=== PATIENT | female | born 1950 | race Caucasian/White ===

== ENCOUNTER 2018-09-21 09:25 | Emergency (ER) | payer MEDICARE ==
[~2018-09-21] VITALS: Ht 152.4 cm; Wt 49.5 kg
[2018-09-21 09:42] VITALS: BP 148/75
[2018-09-21] MEDS ORDERED: LIDOcaine 5% patch TP ONE (10:30)
[2018-09-21] MEDS ORDERED: HYDROcodone/acetaminophen 5mg/325mg tablet PO ONE (10:30)
[2018-09-21] MEDS ORDERED: acetaminophen 325mg tablet PO ONE (10:30)
[2018-09-21] MEDS ORDERED: ketorolac trometh inj. 60 MG/2 ML VIAL IM ONE (10:30)
[2018-09-21] MEDS ORDERED: orphenadrine citrate 60mg/2ml inj. IM ONE (10:30)
[2018-09-21] MEDS ORDERED: CYCL-1 PO (10:31)
[2018-09-21] MEDS ORDERED: LIDO700A32 TOP (10:31)
[2018-09-21] MEDS ORDERED: HYDR-3965 PO (10:31)
== END 2018-09-21 10:57 | disposition home or self-care (01) ==
LOC: EDBD 09:26 → ER 09:26
DX: M54.5 Low back pain (principal); G89.29 Other chronic pain; M79.604 Pain in right leg; Z79.899 Other long term (current) drug therapy
CPT/HCPCS: 96372; 99284; J1885; J2360

== ENCOUNTER 2020-10-11 22:02 | Emergency (ER) | payer MEDICARE ==
[~2020-10-11] VITALS: Ht 152.4 cm; Wt 47.7 kg
[~2020-10-11 22:02] MED LIST: CYCL-1 PO; LIDO700A32 TOP
[2020-10-11] MEDS ORDERED: ondansetron/PF 4mg/2ml inj IV STA (22:21)
[2020-10-11] MEDS ORDERED: CETI-90 PO (22:27)
[2020-10-11] MEDS ORDERED: DULO60CA45 PO (22:27)
--- NOTE | 2020-10-11 22:34 | NUR ---
informed MD of severe pain the patient is in with an SBAR
[2020-10-11] MEDS ORDERED: morphine 4 MG/ML inj SYRINge IV ONE (22:35)
[2020-10-11 22:40] LABS: BASOPHILS # (AUTO) 0.1 X10'3 (0-0.2); BASOPHILS % (AUTO) 0.4 % (0-1); EOSINOPHILS # (AUTO) 0.2 X10'3 (0-0.9); EOSINOPHILS % (AUTO) 1.3 % (0-6); HEMATOCRIT 40.5 % (35.0-45.0); HEMOGLOBIN 13.4 g/dl (12.0-16.0); LYMPHOCYTES # (AUTO) 1.8 X10'3 (1.1-4.8); LYMPHOCYTES % (AUTO) 13.5 % (21-51); MEAN CORPUSCULAR HEMOGLOBIN 29.3 PG (27.0-31.0); MEAN CORPUSCULAR HGB CONC 33.1 g/dL (33.0-36.5); MEAN CORPUSCULAR VOLUME 88.5 FL (78-98); MEAN PLATELET VOLUME 7.6 FL (7.4-10.4); MONOCYTES # (AUTO) 0.8 X10'3 (0-0.9); NEUTROPHILS # (AUTO) 10.4 X10'3 (1.8-7.7); NEUTROPHILS % (AUTO) 78.8 % (42-75); PLATELET COUNT 216 X10'3 (140-440); RED BLOOD COUNT 4.58 X10'6 (4.20-5.60); RED CELL DISTRIBUTION WIDTH 14.2 % (11.5-14.5); WHITE BLOOD COUNT 13.2 X10'3 (4.5-11.0)
[2020-10-11] MEDS ORDERED: morphine 10mg/ml inj. IV PRN (22:45)
[2020-10-11] MEDS ORDERED: normal saline 1000ml 1,000 ML IV ONE (22:45)
[2020-10-11] MEDS ORDERED: iohexol 300mg/ml 100ml inj. ONE (22:49)
[2020-10-11 22:54] LABS: ALANINE AMINOTRANSFERASE 38 U/L (12-78); ALBUMIN 4.3 G/DL (3.4-5.0); ALBUMIN/GLOBULIN RATIO 1.3 (1.1-1.5); ALKALINE PHOSPHATASE 106 IU/L (46-116); ANION GAP 15 (8-16); ASPARTATE AMINO TRANSFERASE 32 U/L (10-37); BILIRUBIN,TOTAL 0.4 MG/DL (0.1-1.0); BLOOD UREA NITROGEN 18 MG/DL (7-18); BUN/CREATININE RATIO 16.7 (6.6-38.0); CALCIUM 9.7 MG/DL (8.5-10.1); CHLORIDE 101 MMOL/L (99-107); CREATININE 1.08 MG/DL (0.40-0.90); GLUCOSE 168 MG/DL (70-104); POTASSIUM 3.3 MMOL/L (3.5-5.1); SODIUM 141 MMOL/L (135-145); TOTAL CARBON DIOXIDE 24.8 MMOL/L (24-32); TOTAL PROTEIN 7.6 G/DL (6.4-8.2); eGFR 50 ML/MIN
--- NOTE | 2020-10-11 23:02 | NUR ---
up to void and there was a stone in the urine. Collected and shown to .
[2020-10-11 23:25] LABS: CLARITY,URINE CLEAR (Clear); COLOR,URINE YELLOW (Yellow); GLUCOSE, URINE NEGATIVE (Neg); KETONES,URINE 15 mg/dl (Neg); LEUKOCYTE ESTERASE ,URINE NEGATIVE (Neg); NITRITES, URINE NEGATIVE (Neg); OCCULT BLOOD,URINE MODERATE (Neg); PH,URINE 7.5 (4.8-8.0); PROTEIN,URINE NEGATIVE (Neg); UA COLLECTION TYPE CLN CATCH MIDSTREAM; UROBILINOGEN,URINE 0.2 E.U/dL (0.2-1.0)
[2020-10-11 23:43] LABS: BACTERIA,URINE NONE SEEN /HPF (Neg); MUCUS STRANDS NONE SEEN /LPF (Neg); SQUAMOUS EPITHELIAL CELL,UR FEW /LPF (FEW); WBC,URINE NONE SEEN /HPF (0-4)
[2020-10-12] MEDS ORDERED: ONDA4TAB12 PO (00:43)
[2020-10-12] MEDS ORDERED: OXYC-145 PO (00:43)
[2020-10-12 01:15] VITALS: BP 180/88
== END 2020-10-12 01:15 | disposition home or self-care (01) ==
LOC: ER 22:03
DX: N20.0 Calculus of kidney (principal); I10 Essential (primary) hypertension; M54.5 Low back pain; R11.2 Nausea with vomiting, unspecified; R14.0 Abdominal distension (gaseous); G89.29 Other chronic pain; Z98.890 Other specified postprocedural states; Z79.899 Other long term (current) drug therapy
CPT/HCPCS: 36415; 71045; 74177; 80053; 81001; 83880; 84484; 85025; 93005; 96361; 96374; 96375; 96376; 99285; J2270; J2405; J7030; Q9967

== ENCOUNTER 2022-09-21 13:53 | Emergency (ER) | payer MEDICARE ==
[~2022-09-21] VITALS: Ht 152.4 cm; Wt 48.2 kg
[~2022-09-21 13:53] MED LIST changes: +CETI-90 PO; -CYCL-1 PO; +DULO60CA59 PO; -LIDO700A32 TOP; +ONDA4TAB12 PO; +OXYC-145 PO
[2022-09-21 16:07] LABS: CLARITY,URINE SLIGHTLY CLOUDY (Clear); COLOR,URINE YELLOW (Yellow); GLUCOSE, URINE NEGATIVE (Neg); KETONES,URINE TRACE mg/dl (Neg); LEUKOCYTE ESTERASE ,URINE SMALL (Neg); NITRITES, URINE POSITIVE (Neg); OCCULT BLOOD,URINE LARGE (Neg); PROTEIN,URINE TRACE mg/dl (Neg); UROBILINOGEN,URINE 0.2 E.U/dL (0.2-1.0)
[2022-09-21 16:11] LABS: BASOPHILS % (AUTO) 0.3 % (0-1); EOSINOPHILS # (AUTO) 0.1 X10'3 (0-0.9); EOSINOPHILS % (AUTO) 0.9 % (0-6); HEMATOCRIT 40.5 % (35.0-45.0); HEMOGLOBIN 13.3 g/dl (12.0-16.0); LYMPHOCYTES # (AUTO) 1.3 X10'3 (1.1-4.8); LYMPHOCYTES % (AUTO) 8.8 % (21-51); MEAN CORPUSCULAR HEMOGLOBIN 28.6 PG (27.0-31.0); MEAN CORPUSCULAR HGB CONC 32.8 g/dL (33.0-36.5); MEAN CORPUSCULAR VOLUME 87.3 FL (78-98); MONOCYTES # (AUTO) 0.9 X10'3 (0-0.9); MONOCYTES % (AUTO) 5.7 % (2-12); NEUTROPHILS # (AUTO) 12.9 X10'3 (1.8-7.7); NEUTROPHILS % (AUTO) 84.3 % (42-75); PLATELET COUNT 225 X10'3 (140-440); RED BLOOD COUNT 4.64 X10'6 (4.20-5.60); RED CELL DISTRIBUTION WIDTH 14.3 % (11.5-14.5); WHITE BLOOD COUNT 15.3 X10'3 (4.5-11.0)
[2022-09-21 16:12] LABS: UA COLLECTION TYPE CLN CATCH MIDSTREAM
[2022-09-21 16:16] LABS: WBC,URINE 30-50 /HPF (0-4)
[2022-09-21 16:17] LABS: BACTERIA,URINE 2+ /HPF (Neg); SQUAMOUS EPITHELIAL CELL,UR FEW /LPF (FEW); WBC CLUMPS,URINE FEW /HPF (NEGATIVE)
[2022-09-21 16:19] LABS: ALANINE AMINOTRANSFERASE 23 U/L (12-78); ALBUMIN 4.1 G/DL (3.4-5.0); ALBUMIN/GLOBULIN RATIO 1.2 (1.1-1.5); ALKALINE PHOSPHATASE 112 IU/L (46-116); ANION GAP 13 (8-16); ASPARTATE AMINO TRANSFERASE 25 U/L (10-37); BILIRUBIN,TOTAL 0.5 MG/DL (0.1-1.0); BLOOD UREA NITROGEN 16 MG/DL (7-18); BUN/CREATININE RATIO 15.4 (6.6-38.0); CALCIUM 9.3 MG/DL (8.5-10.1); CHLORIDE 101 MMOL/L (99-107); CREATININE 1.04 MG/DL (0.40-0.90); GLUCOSE 127 MG/DL (70-104); LIPASE 97 U/L (73-393); SODIUM 140 MMOL/L (135-145); TOTAL CARBON DIOXIDE 26.3 MMOL/L (24-32); TOTAL PROTEIN 7.4 G/DL (6.4-8.2); eGFR 52 ML/MIN
[2022-09-21] MEDS ORDERED: ondansetron/PF 4mg/2ml inj IV ONE (17:50)
[2022-09-21] MEDS ORDERED: CefTRIAXone/D5W-Rocephin 1gm 50 ML IV ONE (17:50)
[2022-09-21] MEDS ORDERED: normal saline 1000ml 1,000 ML IV ONE (17:50)
[2022-09-21] MEDS ORDERED: morphine 4 MG/ML inj SYRINge IV ONE (17:50)
[2022-09-21 19:40] VITALS: BP 185/97
[2022-09-21] MEDS ORDERED: POTASSIUM BICARB 20meq eff tab 20 MEQ TABLET.EFF PO STA (19:53)
[2022-09-21] MEDS ORDERED: proCHLORperazine 10 MG/2 ml inj IV ONE (20:25)
[2022-09-21] MEDS ORDERED: PHEN-786 PO ×2 (20:25)
[2022-09-21] MEDS ORDERED: AMOX-117 PO ×2 (20:25)
[2022-09-21] MEDS ORDERED: ONDA4TAB12 PO ×2 (20:25)
[2022-09-21] MEDS ORDERED: ketorolac tromethamine 15mg/ml inj. IV ONE (20:25)
[2022-09-21] MEDS ORDERED: cloNIDine 0.1 mg tablet PO ONE (21:25)
--- NOTE | 2022-09-21 21:25 | NUR ---
iv dc'd pt being discharged dressing applied.. pt placed in wheel chair for daughter to take mom to car.
== END 2022-09-21 21:35 | disposition home or self-care (01) ==
LOC: ER 13:54
DX: N10 Acute pyelonephritis (principal); G89.29 Other chronic pain; M54.50 Low back pain, unspecified
CPT/HCPCS: 36415; 80053; 81001; 83690; 85025; 87077; 87088; 87186; 96374; 96375; 99284; J0696; J0780; J1885; J2270; J2405; J7030

== ENCOUNTER 2022-09-23 08:53 | Inpatient (IN) | payer MEDICARE ==
[~2022-09-23] VITALS: Ht 152.4 cm; Wt 47.7 kg
[~2022-09-23 08:53] MED LIST changes: +AMOX-117 PO; +PHEN-786 PO
[2022-09-23] MEDS ORDERED: morphine 4 MG/ML inj SYRINge IV ONE ×2 (09:25→12:05)
[2022-09-23] MEDS ORDERED: ondansetron/PF 4mg/2ml inj IV ONE (09:25)
[2022-09-23] MEDS ORDERED: normal saline 1000ML IV soln IVB ONE (09:25)
[2022-09-23 09:57] LABS: BASOPHILS % (AUTO) 0.1 % (0-1); EOSINOPHILS % (AUTO) 0.1 % (0-6); HEMOGLOBIN 11.7 g/dl (12.0-16.0); LYMPHOCYTES # (AUTO) 0.4 X10'3 (1.1-4.8); LYMPHOCYTES % (AUTO) 2.9 % (21-51); MEAN CORPUSCULAR HEMOGLOBIN 29.1 PG (27.0-31.0); MEAN CORPUSCULAR HGB CONC 33.4 g/dL (33.0-36.5); MEAN PLATELET VOLUME 7.9 FL (7.4-10.4); MONOCYTES # (AUTO) 0.7 X10'3 (0-0.9); MONOCYTES % (AUTO) 5.3 % (2-12); NEUTROPHILS # (AUTO) 11.4 X10'3 (1.8-7.7); NEUTROPHILS % (AUTO) 91.6 % (42-75); PLATELET COUNT 109 X10'3 (140-440); RED BLOOD COUNT 4.03 X10'6 (4.20-5.60); RED CELL DISTRIBUTION WIDTH 14.9 % (11.5-14.5); WHITE BLOOD COUNT 12.4 X10'3 (4.5-11.0)
[2022-09-23 10:07] LABS: ALANINE AMINOTRANSFERASE 18 U/L (12-78); ALBUMIN 2.9 G/DL (3.4-5.0); ALBUMIN/GLOBULIN RATIO 0.8 (1.1-1.5); ALKALINE PHOSPHATASE 91 IU/L (46-116); ANION GAP 8 (8-16); ASPARTATE AMINO TRANSFERASE 23 U/L (10-37); BILIRUBIN,TOTAL 0.9 MG/DL (0.1-1.0); BLOOD UREA NITROGEN 42 MG/DL (7-18); BUN/CREATININE RATIO 19.6 (6.6-38.0); CALCIUM 8.7 MG/DL (8.5-10.1); CHLORIDE 100 MMOL/L (99-107); CREATININE 2.14 MG/DL (0.40-0.90); GLUCOSE 112 MG/DL (70-104); LIPASE < 50 U/L (73-393); POTASSIUM 3.4 MMOL/L (3.5-5.1); SODIUM 133 MMOL/L (135-145); TOTAL CARBON DIOXIDE 24.9 MMOL/L (24-32); TOTAL PROTEIN 6.5 G/DL (6.4-8.2); eGFR 23 ML/MIN
[2022-09-23] MEDS ORDERED: iohexol 300mg/ml 100ml inj. ONE (10:17)
[2022-09-23 10:53] LABS: TOTAL CELLS COUNTED 100
[2022-09-23 10:54] LABS: PLATELET ESTIMATE DECREASED; TOXIC GRANULATION 1+; TOXIC VACUOLATION FEW
[2022-09-23 10:57] LABS: COLOR,URINE ORANGE (Yellow); UA COLLECTION TYPE CLN CATCH MIDSTREAM
[2022-09-23 11:08] LABS: CLARITY,URINE CLOUDY (Clear)
[2022-09-23 11:10] LABS: SQUAMOUS EPITHELIAL CELL,UR MODERATE /LPF (FEW); TRANSITIONAL EPI CELLS,URINE MODERATE /HPF; WBC,URINE TNTC /HPF (0-4)
[2022-09-23 11:11] LABS: BACTERIA,URINE 2+ /HPF (Neg)
[2022-09-23 11:12] LABS: MUCUS STRANDS FEW /LPF (Neg)
[2022-09-23] MEDS ORDERED: normal saline 1000ml 1,000 ML IV ONE (11:25)
[2022-09-23] MEDS ORDERED: CefTRIAXone 2gm/D5W 50ml BAG 50 ML IV ONE (11:25)
--- NOTE | 2022-09-23 11:37 | NUR ---
US TECH AT BEDSIDE
[2022-09-23 12:00] LABS: D-DIMER 3.75 MG/L FEU (0-0.50)
[2022-09-23 12:07] LABS: APTT 34 SECONDS (22-32)
[2022-09-23] MEDS ORDERED: DULO30CA52 PO (12:40)
[2022-09-23] MEDS ORDERED: CELE-28 PO (12:41)
[2022-09-23] MEDS ORDERED: acetaminophen 325mg tablet PO PRN ×2 (15:00)
[2022-09-23] MEDS ORDERED: magnesium 4gm in 100ml NS 100 ML IV PRN (15:00)
[2022-09-23] MEDS ORDERED: potassium Cl 20 mEq SR tablet PO PRN (15:00)
[2022-09-23] MEDS ORDERED: acetaminophen 650mg rectal suppository RC PRN (15:00)
[2022-09-23] MEDS ORDERED: potassium Cl 40MEQ/1/2NS 520ml 520 ML IV PRN (15:00)
[2022-09-23] MEDS ORDERED: HYDROcodone/acetaminophen 5mg/325mg tablet PO PRN (15:00)
[2022-09-23] MEDS ORDERED: morphine 2 MG/ML inj. syringe IV PRN (15:00)
[2022-09-23] MEDS ORDERED: mag hydrox/Alum hydrox/simeth 30ml oral suspension PO PRN (15:00)
[2022-09-23] MEDS ORDERED: diphenhydrAMINE 25mg capsule PO PRN (15:00)
[2022-09-23] MEDS ORDERED: magnesium Cl slow-release 64mg tablet PO PRN (15:00)
[2022-09-23] MEDS ORDERED: ondansetron/PF 4mg/2ml inj IV PRN (15:00)
[2022-09-23] MEDS ORDERED: magnesium hydroxide 30ml (MOM) UD suspension PO PRN (15:00)
[2022-09-23] MEDS ORDERED: bisacodyl 10mg suppository rectal RC PRN (15:00)
[2022-09-23] MEDS: normal saline 1000ml 1,000 ML IV SCH ×2 (15:05→23:21)
[2022-09-23 15:31] LABS: HEMOGLOBIN A1C 5.4 % (4.5-6.2)
[2022-09-23] MEDS: HYDROcodone/acetaminophen 10/325mg tab PO PRN (17:52)
[2022-09-23] MEDS: morphine 2 MG/ML inj. syringe IV PRN ×2 (18:14→23:44)
[2022-09-23] MEDS ORDERED: LidoCAINE 2% Topical Jelly 11mL syringe TOP ONE (18:50)
--- NOTE | 2022-09-23 18:53 | NUR ---
CALL PLACED TO PCU, NURSE UNABLE TO TAKE REPORT AT THIS TIME, WILL RETURN MY CALL
--- NOTE | 2022-09-23 18:58 | NUR ---
paged Dr. Ladd to clarify palumbo catheter orders. Pt is voiding frequently no retention issues.
[2022-09-23] MEDS: potassium Cl 20 mEq SR tablet PO PRN ×2 (19:09→23:22)
--- NOTE | 2022-09-23 19:11 | NUR ---
REPORT GIVEN TO FLOOR NURSE, POTASSIUM REPLACED PRIOR TO TRANSPORT
[2022-09-23 19:15] VITALS: BP 171/71
[2022-09-23] MEDS: docusate sod 100mg capsule PO SCH (20:00)
[2022-09-23] MEDS: K and/or MAG REPLACEMENT MC SCH (20:00)
[2022-09-23 22:00] VITALS: BP 168/78
[2022-09-23] MEDS: lactobacillus rhamnosus 10,000 MMU CELLS/CAPSULE PO SCH (23:21)
[2022-09-23] MEDS: heparin, porcine 5000 units/ml vial SQ SCH (23:22)
[2022-09-24] VITALS (7 sets, daily range): BP systolic 155–171; BP diastolic 71–94
[2022-09-24] MEDS: HYDROcodone/acetaminophen 10/325mg tab PO PRN ×3 (02:54→19:10)
--- NOTE | 2022-09-24 03:05 | NUR ---
Reported lab results of positive blood cultures gram negative rods to Dr. Ladd. No new orders.
[2022-09-24] MEDS: normal saline 1000ml 1,000 ML IV SCH ×3 (07:00→22:13)
[2022-09-24 07:06] LABS: BASOPHILS % (AUTO) 0.2 % (0-1); EOSINOPHILS % (AUTO) 0.1 % (0-6); HEMATOCRIT 32.5 % (35.0-45.0); HEMOGLOBIN 10.8 g/dl (12.0-16.0); LYMPHOCYTES # (AUTO) 0.6 X10'3 (1.1-4.8); LYMPHOCYTES % (AUTO) 5.6 % (21-51); MEAN CORPUSCULAR HEMOGLOBIN 28.8 PG (27.0-31.0); MEAN CORPUSCULAR HGB CONC 33.1 g/dL (33.0-36.5); MEAN CORPUSCULAR VOLUME 86.9 FL (78-98); MONOCYTES # (AUTO) 0.8 X10'3 (0-0.9); MONOCYTES % (AUTO) 7.8 % (2-12); NEUTROPHILS # (AUTO) 9.4 X10'3 (1.8-7.7); NEUTROPHILS % (AUTO) 86.3 % (42-75); PLATELET COUNT 116 X10'3 (140-440); RED BLOOD COUNT 3.74 X10'6 (4.20-5.60); WHITE BLOOD COUNT 10.9 X10'3 (4.5-11.0)
--- NOTE | 2022-09-24 07:24 | NUR ---
Patient in room PCU 3012. I have received report from TONY Cleaning and had the opportunity to ask questions and assume patient care. Pt's IV was infiltrated and she was soiled. Cleaned her up and will attempt PIV later. Addendum: 09/24/22 at 8089 by Lyssa Savage RN PIV is intact. Originally entered on wrong patient.
[2022-09-24 07:34] LABS: ALANINE AMINOTRANSFERASE 17 U/L (12-78); ALBUMIN 2.5 G/DL (3.4-5.0); ALBUMIN/GLOBULIN RATIO 0.7 (1.1-1.5); ALKALINE PHOSPHATASE 87 IU/L (46-116); ANION GAP 11 (8-16); ASPARTATE AMINO TRANSFERASE 14 U/L (10-37); BILIRUBIN,TOTAL 0.7 MG/DL (0.1-1.0); BLOOD UREA NITROGEN 29 MG/DL (7-18); BUN/CREATININE RATIO 20.3 (6.6-38.0); CALCIUM 8.6 MG/DL (8.5-10.1); CHLORIDE 105 MMOL/L (99-107); CHOL/HDL RATIO 4.2 (0.00-4.99); CHOLESTEROL 147 MG/DL (0-200); CREATININE 1.43 MG/DL (0.40-0.90); GLUCOSE 85 MG/DL (70-104); HDL CHOLESTEROL 35 MG/DL (35-60); LDL CHOLESTEROL 66 MG/DL (50-100); MAGNESIUM 2.1 MG/DL (1.5-2.4); PHOSPHORUS 2.8 MG/DL (2.3-4.5); POTASSIUM 4.2 MMOL/L (3.5-5.1); SODIUM 136 MMOL/L (135-145); TOTAL CARBON DIOXIDE 19.6 MMOL/L (24-32); TRIGLYCERIDES 217 MG/DL (20-135); eGFR 36 ML/MIN
[2022-09-24] MEDS: morphine 2 MG/ML inj. syringe IV PRN ×2 (07:44→22:38)
[2022-09-24] MEDS: duloxetine 30mg CAPSULE.DR PO SCH (07:47)
[2022-09-24] MEDS: lactobacillus rhamnosus 10,000 MMU CELLS/CAPSULE PO SCH ×2 (07:47→19:15)
[2022-09-24] MEDS: CefTRIAXone/D5W-Rocephin 1gm 50 ML IV SCH (07:48)
[2022-09-24] MEDS: docusate sod 100mg capsule PO SCH ×2 (07:49→19:16)
[2022-09-24] MEDS: heparin, porcine 5000 units/ml vial SQ SCH ×2 (07:50→19:16)
[2022-09-24] MEDS: K and/or MAG REPLACEMENT MC SCH ×2 (07:51→19:16)
--- NOTE | 2022-09-24 11:07 | NUR ---
Student documentation: I have reviewed and agree with all interventions, assessments performed and documented by Yenny student nurse.
--- NOTE | 2022-09-24 13:00 | NUR ---
Problems reprioritized. Patient report given, questions answered & plan of care reviewed with TONY Francis.
[2022-09-24] MEDS: carVEDilol 3.125mg tablet PO SCH ×2 (13:44→19:16)
[2022-09-24] MEDS: amLODIPine 5mg tablet PO SCH (13:44)
--- NOTE | 2022-09-24 15:32 | NUR ---
Initial: Pt admit DX sepsis, UTI, and pyelonephritis per EMR. PO 0% first regular diet meal this AM w/ abdominal pain and prior N/V/diarrhea this admit per EMR. GI symptoms likely influencing PO trends; pending further intake documentation. LBM 09/23 refused colace today receiving routine probiotic. Will monitor for further PO trends and nutrition intervention needs this admit. Rec: 1. continue regular diet; encourage PO 2. monitor PO trends for ONS needs 3. routine bowel care 4. weekly wts Addendum: 09/24/22 at [address] Amended: Links added.
[2022-09-25] MEDS: HYDROcodone/acetaminophen 10/325mg tab PO PRN ×2 (00:16→15:23)
[2022-09-25] MEDS: morphine 2 MG/ML inj. syringe IV PRN ×2 (02:39→21:07)
[2022-09-25 02:44] VITALS: BP 149/87
[2022-09-25] MEDS: normal saline 1000ml 1,000 ML IV SCH ×3 (05:21→23:00)
[2022-09-25 07:02] LABS: BASOPHILS % (AUTO) 0.1 % (0-1); EOSINOPHILS % (AUTO) 0.3 % (0-6); HEMATOCRIT 36.9 % (35.0-45.0); HEMOGLOBIN 12.3 g/dl (12.0-16.0); LYMPHOCYTES # (AUTO) 0.5 X10'3 (1.1-4.8); LYMPHOCYTES % (AUTO) 5.7 % (21-51); MEAN CORPUSCULAR HEMOGLOBIN 29.3 PG (27.0-31.0); MEAN CORPUSCULAR HGB CONC 33.5 g/dL (33.0-36.5); MEAN CORPUSCULAR VOLUME 87.6 FL (78-98); MEAN PLATELET VOLUME 7.7 FL (7.4-10.4); MONOCYTES # (AUTO) 0.8 X10'3 (0-0.9); MONOCYTES % (AUTO) 9.3 % (2-12); NEUTROPHILS # (AUTO) 7.7 X10'3 (1.8-7.7); NEUTROPHILS % (AUTO) 84.6 % (42-75); PLATELET COUNT 134 X10'3 (140-440); RED BLOOD COUNT 4.21 X10'6 (4.20-5.60); WHITE BLOOD COUNT 9.1 X10'3 (4.5-11.0)
[2022-09-25 07:18] LABS: ALANINE AMINOTRANSFERASE 13 U/L (12-78); ALBUMIN 2.7 G/DL (3.4-5.0); ALBUMIN/GLOBULIN RATIO 0.7 (1.1-1.5); ALKALINE PHOSPHATASE 93 IU/L (46-116); ANION GAP 12 (8-16); ASPARTATE AMINO TRANSFERASE 14 U/L (10-37); BILIRUBIN,TOTAL 0.7 MG/DL (0.1-1.0); BLOOD UREA NITROGEN 21 MG/DL (7-18); BUN/CREATININE RATIO 15.6 (6.6-38.0); CALCIUM 8.7 MG/DL (8.5-10.1); CHLORIDE 104 MMOL/L (99-107); CREATININE 1.35 MG/DL (0.40-0.90); GLUCOSE 87 MG/DL (70-104); PHOSPHORUS 2.6 MG/DL (2.3-4.5); POTASSIUM 3.9 MMOL/L (3.5-5.1); SODIUM 138 MMOL/L (135-145); TOTAL CARBON DIOXIDE 21.8 MMOL/L (24-32); TOTAL PROTEIN 6.7 G/DL (6.4-8.2); eGFR 39 ML/MIN
[2022-09-25] MEDS: CefTRIAXone/D5W-Rocephin 1gm 50 ML IV SCH (07:55)
[2022-09-25] MEDS: K and/or MAG REPLACEMENT MC SCH ×2 (08:00→20:00)
[2022-09-25 08:30] VITALS: BP 155/80
[2022-09-25] MEDS: duloxetine 30mg CAPSULE.DR PO SCH (08:32)
[2022-09-25] MEDS: carVEDilol 3.125mg tablet PO SCH ×2 (08:33→20:21)
[2022-09-25] MEDS: docusate sod 100mg capsule PO SCH ×2 (08:33→20:21)
[2022-09-25] MEDS: heparin, porcine 5000 units/ml vial SQ SCH ×2 (08:33→20:21)
[2022-09-25] MEDS: lactobacillus rhamnosus 10,000 MMU CELLS/CAPSULE PO SCH ×2 (08:33→20:21)
[2022-09-25] MEDS: amLODIPine 5mg tablet PO SCH (08:34)
[2022-09-25] MEDS ORDERED: meropenem inj 1 GM in normal saline 100ml IV soln 100 ML IV SCH (08:55)
[2022-09-25 15:00] VITALS: BP 129/69
--- NOTE | 2022-09-25 17:09 | NUR ---
I AGREE WITH GEOVANY FRENCH ASSESSMENT EXCEPT WHERE I CHARTED MY OWN.
--- NOTE | 2022-09-25 17:26 | NUR ---
PT IS ADMITTED TO PCU, URINE CULTURE RESULTS FAX TO FLOOR
[2022-09-25 18:00] VITALS: BP 160/84
--- NOTE | 2022-09-25 18:44 | NUR ---
Patient in room PCU 3012. I have received report from Reba ARMENTA and had the opportunity to ask questions and assume patient care.
[2022-09-25] MEDS: meropenem inj 1 GM in normal saline 100ml IV soln 100 ML IV SCH (21:53)
--- NOTE | 2022-09-26 06:10 | NUR ---
Problems reprioritized. Patient report given, questions answered & plan of care reviewed with Reba ARMENTA.
[2022-09-26] MEDS: meropenem inj 1 GM in normal saline 100ml IV soln 100 ML IV SCH (07:45)
[2022-09-26] MEDS: normal saline 1000ml 1,000 ML IV SCH (07:47)
[2022-09-26] MEDS: HYDROcodone/acetaminophen 10/325mg tab PO PRN ×2 (07:51→11:48)
[2022-09-26] MEDS: heparin, porcine 5000 units/ml vial SQ SCH (07:53)
[2022-09-26] MEDS: lactobacillus rhamnosus 10,000 MMU CELLS/CAPSULE PO SCH (07:53)
[2022-09-26] MEDS: carVEDilol 3.125mg tablet PO SCH (07:53)
[2022-09-26 07:54] VITALS: BP_SYST 155
[2022-09-26] MEDS: docusate sod 100mg capsule PO SCH (07:54)
[2022-09-26] MEDS: duloxetine 30mg CAPSULE.DR PO SCH (07:54)
[2022-09-26] MEDS: amLODIPine 5mg tablet PO SCH (07:54)
[2022-09-26] MEDS: K and/or MAG REPLACEMENT MC SCH (08:00)
[2022-09-26 08:27] LABS: BASOPHILS % (AUTO) 0.3 % (0-1); EOSINOPHILS % (AUTO) 0.4 % (0-6); HEMATOCRIT 34.4 % (35.0-45.0); HEMOGLOBIN 11.5 g/dl (12.0-16.0); LYMPHOCYTES # (AUTO) 0.8 X10'3 (1.1-4.8); LYMPHOCYTES % (AUTO) 10.3 % (21-51); MEAN CORPUSCULAR HEMOGLOBIN 28.9 PG (27.0-31.0); MEAN CORPUSCULAR HGB CONC 33.4 g/dL (33.0-36.5); MEAN CORPUSCULAR VOLUME 86.6 FL (78-98); MEAN PLATELET VOLUME 7.5 FL (7.4-10.4); MONOCYTES # (AUTO) 0.9 X10'3 (0-0.9); NEUTROPHILS # (AUTO) 6.1 X10'3 (1.8-7.7); PLATELET COUNT 138 X10'3 (140-440); RED BLOOD COUNT 3.97 X10'6 (4.20-5.60); RED CELL DISTRIBUTION WIDTH 14.8 % (11.5-14.5); WHITE BLOOD COUNT 7.9 X10'3 (4.5-11.0)
[2022-09-26 08:53] LABS: ALANINE AMINOTRANSFERASE 12 U/L (12-78); ALBUMIN 2.4 G/DL (3.4-5.0); ALBUMIN/GLOBULIN RATIO 0.6 (1.1-1.5); ALKALINE PHOSPHATASE 78 IU/L (46-116); ANION GAP 14 (8-16); ASPARTATE AMINO TRANSFERASE 15 U/L (10-37); BILIRUBIN,TOTAL 0.6 MG/DL (0.1-1.0); BLOOD UREA NITROGEN 19 MG/DL (7-18); BUN/CREATININE RATIO 12.1 (6.6-38.0); CALCIUM 8.6 MG/DL (8.5-10.1); CHLORIDE 105 MMOL/L (99-107); CREATININE 1.57 MG/DL (0.40-0.90); GLUCOSE 87 MG/DL (70-104); PHOSPHORUS 2.3 MG/DL (2.3-4.5); POTASSIUM 3.3 MMOL/L (3.5-5.1); SODIUM 137 MMOL/L (135-145); TOTAL CARBON DIOXIDE 18.3 MMOL/L (24-32); TOTAL PROTEIN 6.1 G/DL (6.4-8.2); eGFR 32 ML/MIN
[2022-09-26] MEDS: potassium Cl 20 mEq SR tablet PO PRN ×2 (09:28→14:09)
--- NOTE | 2022-09-26 10:18 | NUR ---
3012B-Sherine Barr-Pt positive for MDR bacteria in urine & blood--Reba x [phone].
[2022-09-26] MEDS ORDERED: CARV-49 PO (13:25)
[2022-09-26] MEDS ORDERED: LACT1CAP26 PO (13:25)
[2022-09-26] MEDS ORDERED: NOR5T PO (13:25)
--- NOTE | 2022-09-26 14:25 | NUR ---
3012B-Sherine Barr--family would like to speak w/ you prior to D/C.-Reba x [phone].
--- NOTE | 2022-09-26 16:46 | NUR ---
pt discharged, sent home with home meds stored in pharmacy. Called pharmacy prior to discharge to very medication dosages per dr orders.
== END 2022-09-26 16:25 | disposition home or self-care (01) | DRG 871 ==
LOC: ER 08:53 → ED HOLD 15:02 → PCU 3S 19:16
PROVIDERS: ADMIT Family Medicine; ATTEND Family Medicine
PROC: BW211ZZ Computerized Tomography (CT Scan) of Abdomen and Pelvis using Low Osmolar Contrast (ICD-10-PCS; principal; 2022-09-23)
PROC: 05HY33Z Insertion of Infusion Device into Upper Vein, Percutaneous Approach (ICD-10-PCS; 2022-09-23)
DX: A41.51 Sepsis due to Escherichia coli [E. coli] (principal); N17.0 Acute kidney failure with tubular necrosis; E87.1 Hypo-osmolality and hyponatremia; N13.6 Pyonephrosis; Z16.12 Extended spectrum beta lactamase (ESBL) resistance; Z16.24 Resistance to multiple antibiotics; E86.0 Dehydration; Z66 Do not resuscitate; F32.A Depression, unspecified; G89.29 Other chronic pain; M54.2 Cervicalgia; M54.9 Dorsalgia, unspecified; E87.6 Hypokalemia; D69.6 Thrombocytopenia, unspecified; I10 Essential (primary) hypertension; Z80.0 Family history of malignant neoplasm of digestive organs; Z87.442 Personal history of urinary calculi; Z90.710 Acquired absence of both cervix and uterus; Z90.49 Acquired absence of other specified parts of digestive tract
CPT/HCPCS: 36410; 36415; 74177; 76700; 76942; 80053; 80061; 81001; 83036; 83605; 83690; 83735; 84100; 84145; 85007; 85025; 85379; 85384; 85610; 85730; 87040; 87077; 87081; 87088; 87186; 96365; 96374; 96375; 96376; 97116; 97161; 97530; 99284; 99285; C1751; G0378; J0696; J0780; J1644; J1885; J2185; J2270; J2405; J3490; J7030; J7040; Q0163; Q9967